=== PATIENT | male | born 1960 | race Two or more races ===

== ENCOUNTER 2024-10-06 10:13 | Emergency (ER) | payer MEDICAID, SELFPAY ==
[2024-10-06 10:45] VITALS: BP 143/78; PULSE 71; RESP 17; TEMP 36.8; O2SAT 96; BMI 25.4
--- NOTE | 2024-10-06 11:08 | XR_ITS ---
Examination: CT chest, without intravenous contrast. Sagittal and coronal 2-D reconstructions. Exam date and time: October 06, 2024 1208 hours INDICATIONS: Patient fell 3 weeks ago with injury of the chest, chest pain CTDI:vol (mGy) 12.2 DLP: (mGycm) 464 Technique: Multiple 3.0 mm axial sections of the chest to been obtained. Bone and lung density settings are obtained. Sagittal and coronal 2-D reconstructions have been obtained. Low dose protocols were performed. One or more of the following dose reduction techniques were used; automated exposure control, adjustment of the mA and/or KV according to patient size, use of iterative reconstruction technique. Findings: Thoracic aorta pulmonary arteries appear intact No hemopericardium Moderate calcification left anterior descending coronary artery Atelectasis in the lower lung zones No pneumothorax No hemothorax The manubrium, the body the sternum intact No acute thoracic vertebral body compression fractures Old appearing fracture deformity right clavicle but clinical correlation advised Multiple old right rib fractures No acute rib fractures No visualized liver splenic or renal laceration Abdominal aorta appears intact IMPRESSION: Thoracic aorta pulmonary arteries appear intact No hemopericardium, pneumothorax, pulmonary contusion or hemothorax
--- NOTE | 2024-10-06 12:43 | EDNOTE_ITS ---
<Statement entered by Viviana Guaman MD - 10/12/24 02:10> As co-signing physician, I was present and available for consult prn. I concur with the plan and care as documented by the midlevel provider. ED Fall Injury RME/HPI General Chief Complaint: Fall Stated Complaint: LOWER BACK PAIN S/P FALL 3 WEEKS AGO Time Seen by Provider: 10/06/24 11:08 Arrival date/time: 10/06/24 10:13 64-year-old male presents to the Emergency Department today for complaints of upper back pain as well as left sided rib pain ongoing for the last 3 weeks after falling patient reports pain is worse with movement patient reports no chest pain or shortness of breath Limitations: no limitations Related Data Home Medications ?Medication ?Instructions ?Recorded ?Confirmed lisinopril 20 mg tablet 20 mg PO QDAY 12/17/1705/27 allopurinol 300 mg tablet 300 mg PO QDAY 05/27/2005/11 atorvastatin 10 mg tablet 10 mg PO QDAY 05/27/2005/27 doxazosin 8 mg tablet 8 mg PO QDAY 05/27/20 loratadine 10 mg tablet 10 mg PO QDAY 05/27/2005/27 pantoprazole 20 mg tablet,delayed 20 mg PO QDAY 05/27/20 release tiotropium bromide 18 mcg capsule 1 cap inhalation QDA Y 05/27/20 05/27/20 with inhalation device (Spiriva with HandiHaler) Previous Rx's ?Medication ?Instructions ?Recorded docusate sodium 100 mg capsule 100 mg PO BID #60 caps 05/28/20 hydrocodone 5 mg-acetaminophen 300 1 tab PO Q6H PRN pa in (scale score 05/28/20 mg tablet 7-10) #20 tabs baclofen 10 mg tablet 10 mg PO TID #20 tabs diclofenac sodium 1 % topical gel 2 g topical QID #100 grams 08/19/22 chlordiazepoxide HCl 25 mg capsule 25 mg PO Q8H PRN al cohol 12/15/22 withdrawal #20 caps cyclobenzaprine 5 mg tablet 5 mg PO TID PRN muscle spa sm #30 10/06/24 tabs ibuprofen 600 mg tablet 600 mg PO Q6H #30 tabs 10/06 Allergies Allergy/AdvReac Type Severity Reaction Status Date / Time No Known Allergies Allergy Verified 07/03/23 19:20 Review of Systems Review of Systems Systems Reviewed: All systems reviewed, normal except as documented Constitutional Constitutional: Reports system reviewed and no additional complaints, except as documented, Denies fever(s) and Denies headache(s) Eyes Eyes: Reports system reviewed and no additional complaints, except as documented and Denies blurry vision ENT Ears, Nose, Mouth, and Throat: Reports system reviewed and no additional complaints, except as documented, Denies headache(s), Denies nasal congestion and Denies nasal discharge Cardiovascular Cardiovascular: Reports system reviewed and no additional complaints, except as documented, Denies chest pain and Denies dyspnea Respiratory Respiratory: Reports system reviewed and no additional complaints, except as documented, Denies chest congestion, Denies cough and Denies dyspnea Gastrointestinal Gastrointestinal: Reports system reviewed and no additional complaints, except as documented and Denies abdominal pain Musculoskeletal Musculoskeletal: Reports system reviewed and no additional complaints, except as documented, Denies back pain and Reports other (Left-sided rib pain) Integumentary/Breasts Skin/Breast: Reports system reviewed and no additional complaints, except as documented and Denies rash Neurologic Neurologic: Reports system reviewed and no additional complaints, except as documented, Reports as per HPI and Denies headache(s) Past Medical History Past Medical History NEUROLOGIC: Negative Neurological Disorders or Seizures CARDIAC: Positive Cardiac Disorders and Hypertension; Negative Congestive Heart Failure RESPIRATORY: Positive Asthma and Pneumonia (2019); Negative Chronic Obstructive Pulmonary Disease (COPD) GASTROINTESTINAL: Negative Gastrointestinal Disorders GENITOURINARY: Negative Genitourinary Disorders or Renal Disease MUSCULOSKELETAL: Positive Musculoskeletal Disorders, Gout and Fractures ENDOCRINE: Positive Endocrine Disorders (FATTY LIVER); Negative Diabetes Mellitus Type 1 or Diabetes Mellitus Type 2 HEMATOLOGIC: Negative Blood Disorders or Sickle Cell Disease OTHER HISTORY: Positive Falls (2018); Negative Blood Transfusions or Anesthesia Reactions Surgical History SURGICAL: Positive Abdominal Surgery Social History SMOKING STATUS: Never smoker SUBSTANCE USE: does not use ED Exam General Limitations: Present no limitations General appearance: Present alert and in no apparent distress Head Head exam: Present atraumatic, normocephalic and normal inspection Eye Eye exam: Present normal appearance, PERRL and EOMI ENT ENT exam: Present normal exam, normal oropharynx and mucous membranes moist Neck Neck exam: Present normal inspection, full ROM and trachea midline Chest Chest inspection: Present normal inspection and symmetric chest wall rise Respiratory Respiratory exam: Present normal lung sounds bilaterally Cardiovascular Cardiovascular exam: Present regular rate, normal rhythm and normal heart sounds Abdominal Exam Abdominal exam: Present soft and normal bowel sounds; Absent distention or tenderness Extremities Exam Extremities exam: Present normal inspection and full ROM Back Exam Back exam: Present normal inspection and full ROM Back 1 view image: 2 1. Pain Neurological Exam Neurological exam: Present alert, oriented X3 and CN II-XII intact Psychiatric Psychiatric exam: Present normal affect and normal mood Skin Skin exam: Present warm, dry, intact and normal color Course Quality Measures none Orders Category Date Time Status CT chest wo con Stat Exams 10/06/24 11:08 Completed Vital Signs Vital signs: Vital Signs Temperature 98.2 F 10/06/24 10:45 Pulse Rate 71 10/06/24 10:45 Respiratory Rate 17 10/06/24 10:45 Blood Pressure 143/78 H 10/06/24 10:45 Pulse Oximetry (%) 96 10/06/24 10:45 Oxygen Delivery Method Room Air 10/06/24 10:45 O2 saturation 96% on room air with normal limits Fall MDM Narrative MDM Narrative:: 64-year-old male presents to the Emergency Department today for complaints of upper back pain as well as left sided rib pain ongoing for the last 3 weeks after falling patient reports pain is worse with movement patient reports no chest pain or shortness of breath On exam patient's pain over his left ribs and mid back no spinal tenderness no head or neck injury Imaging obtained no acute emergent findings noted Patient discharged home in no distress to follow-up with primary care doctor in the next 24 to 48 hours and for any worsening symptoms to return to the ER immediately Patient data External records reviewed:: [facility] previous records Clinical information provided by:: patient Social determinants that could affect healthcare access:: none Patient has the following chronic illnesses:: See history How is presenting disease/condition affected by chronic disease/condition?: c aused by Evaluation data The following diagnostics were reviewed and interpreted by me:: radiology exam(s) Lab and/or radiology exams considered but not ordered:: Radiology obtained Interpretation Summary: Reviewed by me Medications / Prescriptions Medications or Prescriptions considered but not ordered:: Given Medication administrations:: Given Consultations Consultation(s) initiated? (list below): No Diagnosis Fall Differential Diagnosis: other Most likely diagnosis given after review of the tests above:: Rib contusion Admission Indicated Admission indicated?: not indicated Admission Request Was there a request for admission?: No Disposition Plan Disposition Plan: Discharge Discharge Attestation Discharge Attestation: The patient and all family members were given an opportunity to ask questions and understood the discharge instructions. Discharge instructions specifically effects, indications for sooner follow up or return to the emergency department, and the expected course of current diagnosis. Patient condition: Stable Discharge Plan Plan Patient Disposition: HOME (Self Care) Disposition Comment: Stable Prescriptions/Referrals Prescriptions/Med Rec: New ibuprofen 600 mg tablet 600 mg PO Q6H Qty: 30 0RF cyclobenzaprine 5 mg tablet 5 mg PO TID PRN (Reason: muscle spasm) Qty: 30 0RF No Action lisinopril 20 mg Tablet 20 mg PO QDAY atorvastatin 10 mg Tablet 10 mg PO QDAY pantoprazole 20 mg Tablet,Delayed Release (Dr/Ec) 20 mg PO QDAY doxazosin 8 mg Tablet 8 mg PO QDAY allopurinol 300 mg Tablet 300 mg PO QDAY loratadine 10 mg Tablet 10 mg PO QDAY tiotropium bromide [Spiriva with HandiHaler] 18 mcg Capsule, W/Inhalation Device 1 cap INHALATION QDAY hydrocodone-acetaminophen 5-300 mg tablet 1 tab PO Q6H MDD 4 PRN (Reason: pain (scale score 7-10)) Qty: 20 0RF docusate sodium 100 mg capsule 100 mg PO BID Qty: 60 0RF chlordiazepoxide HCl 25 mg capsule 25 mg PO Q8H PRN (Reason: alcohol withdrawal) Qty: 20 0RF baclofen 10 mg tablet 10 mg PO TID Qty: 20 0RF diclofenac sodium 1 % gel 2 g topical QID Qty: 100 0RF Rx Instructions: apply to single elbow, wrist or hand; for hand includes palm/fingers/back of hand Referrals: Rob Ochoa MD [Primary Care Provider] - In 1 week Problem List Clinical Impression: Rib pain on left side Patient/Caregiver Discharge Instructions Education Materials: ED Chest Pain, Noncardiac Additional Instructions: Please follow up with your primary care doctor in the next 24-48hrs for any worsening symptoms return here immediately Print Language: Pashto Stand Alone Forms: Ni Award Info., Patient Portal Info Letter PA/MAIL CARRIERS SUPERVISOR Supervising Physician PA/MAIL CARRIERS SUPERVISOR Supervising Physician: Dr. GUAMAN
== END 2024-10-06 14:49 | disposition home or self-care (01) ==
PROVIDERS: Emergency Provider Emergency Medicine; PCP Student in an Organized Health Care Education/Training Program
DX: S29.9XXA Unspecified injury of thorax, initial encounter (principal); W19.XXXA Unspecified fall, initial encounter
CPT/HCPCS: 71250; 99284

== ENCOUNTER → 2025-03-09 | Outpatient (CLI) | payer MEDICAID, SELFPAY ==
--- NOTE | 2025-03-09 16:59 | XR_ITS ---
EXAMINATION: Cervical spine, 5 views Technique: Cervical spine AP, AP odontoid, lateral, bilateral obliques, 5 views Exam date and time: March 09, 2025, 1701 hrs., Comparison February 03, 2019 Indications: Neck pain months Findings: Satisfactory alignment cervical vertebral bodies Mild disc narrowing C4-C5, C5-C6, C6-C7 with mild bilateral neural foraminal stenosis at these levels No cervical fracture Intact odontoid Impression: Mild degenerative disc disease C4-C5, C5-C6, C6-C7
== END | disposition home or self-care (01) ==
PROVIDERS: PCP Registered Nurse Community Health; Referring Provider Registered Nurse Community Health; Visit Provider Registered Nurse Community Health
DX: M50.321 Other cervical disc degeneration at C4-C5 level (principal)
CPT/HCPCS: 72050

== ENCOUNTER → 2025-04-01 | Outpatient (CLI) | payer MEDICAID, SELFPAY ==
--- NOTE | 2025-04-01 09:30 | XR_ITS ---
Examination: MRI cervical spine without intravenous contrast Date and time of exam: April 01 2025, 1251 hours INDICATIONS: Neck pain neck stiffness decreased range of motion numbness and paresthesias in the right arm 2 years Technique: Multiple axial and sagittal sections of the cervical spine to been obtained. T2 weighted sagittal sections, TR 3, 270, TE 117 T1-weighted sagittal sections, TR 500, TE 11 T1-weighted axial sections, TR 607, TE 12, axial sections TR 18, TE 27 and T2 weighted transverse sections, TR 3920, TE 122. Findings: Mildly exaggerated cervical lordosis No cervical fracture Intact odontoid Diffuse cervical disc desiccation Mild to moderate diffuse cervical disc narrowing most prominent C5-C6 No localized enlargement cervical cord C2-C3 no disc protrusion C3-C4 2 mm central subarticular osteophyte disc complex, moderate bilateral neural foraminal stenosis C4-C5 4 mm central subarticular osteophyte disc complex indenting the ventral margin cervical cord producing severe overall spinal stenosis including advanced bilateral neural foraminal stenosis C5-C6 3 mm central subarticular osteophyte disc complex, advanced left neuroforaminal stenosis Moderate bilateral neural foraminal stenosis C7-T1 no disc protrusion IMPRESSION: Diffuse significant cervical degenerative disc disease Severe overall spinal stenosis C4-C5 Additional significant neural foraminal stenosis as above
== END | disposition home or self-care (01) ==
PROVIDERS: PCP Registered Nurse Community Health; Referring Provider Registered Nurse Community Health; Visit Provider Registered Nurse Community Health
DX: M50.221 Other cervical disc displacement at C4-C5 level (principal); M48.02 Spinal stenosis, cervical region
CPT/HCPCS: 72141

== ENCOUNTER 2025-05-11 17:29 | Emergency (ER) | payer MEDICAID, SELFPAY ==
[2025-05-11 17:30] VITALS: BMI 28.8
[2025-05-11 18:41] VITALS: BP 168/88; PULSE 71; RESP 18; TEMP 37; O2SAT 95
--- NOTE | 2025-05-11 19:23 | XR_ITS ---
Examination: Abdomen sonogram, Limited Date and time of exam: May 11, 2025, 1950 hours INDICATIONS: Right upper abdominal pain beginning 2 weeks ago Technique: Real-time roy scale transabdominal sonographic images of the upper abdomen obtained. Findings: Normal gallbladder Normal common bile duct 0.2 cm Pancreatic duct 2.6 cm Liver 14.6 cm fatty infiltration Normal hepatopetal portal venous flow Patent IVC IMPRESSION: Normal catheter Normal common bile duct
--- NOTE | 2025-05-11 19:23 | EKG_ITS ---
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
--- NOTE | 2025-05-11 19:27 | PD.EDRME ---
Rapid Medical Screening Exam RME Arrival date/time: 05/11/25 17:29 64-year-old male with a history of alcohol abuse reports with complaints of right upper quadrant abdominal pain and the beginning of withdrawal symptoms Chief Complaint: Abdominal Pain Time Seen by Provider: 05/11/25 18:32 Vital signs: Vital Signs Temperature 98.6 F 05/11/25 18:41 Pulse Rate 71 05/11/25 18:41 Respiratory Rate 18 05/11/25 18:41 Blood Pressure 168/88 H 05/11/25 18:41 Pulse Oximetry (%) 95 05/11/25 18:41 Oxygen Delivery Method Room Air 05/11/25 18:41 Exam: ? Clinical Impression: ?
[2025-05-11] MEDS: LORazepam 2 MG/ML VIAL IM (19:43)
[2025-05-11] MEDS: THIAMINE INJ 100 MG/ML VIAL 2 ML IM (19:44)
[2025-05-11] MEDS: FOLIC ACID INJ 1 MG/0.2 ML IM (19:44)
[2025-05-11] MEDS: SODIUM CHLORIDE 0.9% 1000 ML 1,000 ML 999 ML IV (20:13)
[2025-05-11 20:29] LABS: Collection Type, Urine Clean Catch
[2025-05-11 20:31] LABS: Basophils # (Auto) 0.0 Thou/mm3 (0.0-0.2); Basophils % (Auto) 0 % (0-2.5); Eosinophils # (Auto) 0.0 Thou/mm3 (0.0-0.5); Eosinophils % (Auto) 1 % (0-10); Hematocrit 40.2 % (41.0-53.0); Hemoglobin 14.5 g/dL (13.5-16.0); Immature Granulocytes Auto 0.01 Thou/mm3 (0.00-0.00); Lymphocytes # (Auto) 1.1 Thou/mm3 (1.0-4.8); Lymphocytes % (Auto) 21 % (10-50); Mean Corpuscular HGB Conc 36.1 g/dl (31.0-37.0); Mean Corpuscular Hemoglobin 34.3 pg (25.0-35.0); Mean Corpuscular Volume 95 fL (80-100); Monocytes # (Auto) 0.8 Thou/mm3 (0.0-0.8); Monocytes % (Auto) 16 % (0-12); Neutrophils # (Auto) 3.2 Thou/mm3 (1.8-7.7); Neutrophils % (Auto) 62 % (37-80); Nucleated Red Blood Cell # 0.00 Thou/mm3 (0.00-0.00); Nucleated Red Blood Cell % 0 /100 WBC (0); Platelet Count 214 Thou/mm3 (140-440); RDW Standard Deviation 40.5 fL (35.1-43.9); Red Blood Count 4.23 Miln/mm3 (4.50-5.90); White Blood Count 5.2 Thou/mm3 (3.8-10.6)
[2025-05-11 20:34] LABS: Bilirubin,Urine Negative (Negative); Blood,Urine Negative (Negative); Clarity,Urine Clear (Clear/Hazy); Color,Urine Lt-Yellow (Lt Yel-Yel); Culture Indicated,Urine Not Indicated; Glucose, Urine 1+ (Negative); Ketones,Urine Negative (Negative); Leukocyte Esterase,Urine Negative (Negative); Nitrite,Urine Negative (Negative); PH,Urine 6.5 (5.0-7.0); Protein,Urine 1+ (Neg - Trace); RBC,Urine 1 /hpf (0-3); Specific Gravity,Urine 1.011 (1.001-1.035); Squamous Epithelial Cell,Urine < 1 /hpf (0-5); Urobilinogen,Urine Negative mg/dL (0.0-1.0); WBC,Urine 2 /hpf (0-5)
[2025-05-11 20:43] LABS: Amphetamine/Methamp Scrn,U Negative (Negative); Barbiturate Screen,Urine Negative (Negative); Benzodiazepines Screen,Urine Negative (Negative); Benzoylecgonine Screen, Ur Negative (Negative); Fentanyl Screen,Urine Negative (Negative); Opiate Screen,Urine Negative (Negative); THC Screen,Urine Negative (Negative)
[2025-05-11 20:59] LABS: Alanine Aminotransferase 26 U/L (10-49); Albumin, Serum 4.6 gm/dL (3.4-4.8); Albumin/Globulin Ratio 1.6 (1.2-2.2); Alcohol, Blood Medical < 3.0 mg/dL (0-10.0); Alkaline Phosphatase 69 U/L (46-116); Anion Gap 8 (7-16); Aspartate Amino Transferase 29 U/L (0-34); BUN/Creatinine Ratio 10 Ratio (12-20); Bilirubin,Total 1.2 mg/dL (0.3-1.2); Blood Urea Nitrogen 8 mg/dL (9-23); Calcium 9.4 mg/dL (8.3-10.6); Calcium (Corrected) 9.4 mg/dL (8.5-10.1); Carbon Dioxide 27.6 mMol/L (20.0-31.0); Chloride 96 mMol/L (98-107); Creatinine (Component) 0.8 mg/dL (0.6-1.3); Estimated Creatinine Clearance 94.6 mL/min (>60); Globulin 2.8 gm/dL (2.3-3.5); Glucose 106 mg/dL (74-106); Lipase 57 U/L (12-53); Magnesium 1.9 mg/dL (1.6-2.6); Osmolality,Calculated 262 (275-295); Potassium 3.6 mMol/L (3.4-5.1); Sodium 132 mMol/L (136-145); Total Protein 7.4 gm/dL (5.7-8.2); Troponin I < 0.020 ng/mL (0.0-0.045); eGFR > 60 See Note
[2025-05-11] MEDS: MULTIVITAMIN 15 ML UDC PO (21:10)
--- NOTE | 2025-05-11 22:59 | PD.EDABDPN ---
ED Abdominal Pain RME/HPI General Chief Complaint: Abdominal Pain Stated complaint: ruq pain Time seen by provider: 05/11/25 18:32 Arrival date/time: 05/11/25 17:29 Limitations: no limitations RME / HPI RME / HPI narrative: 05/11/25 17:29 64-year-old male with a history of alcohol abuse reports with complaints of right upper quadrant abdominal pain and the beginning of withdrawal symptoms ------- Dr. Mei's Main ED Evaluation: 64yo male with a history of alcohol abuse presents to the ED for a chief complaint of epigastric pain x 1 week. Patient's pain is not associated with food. Patient endorses associated nausea. Per patient's girlfriend, patient drinks heavily every day and began having tremors on arrival to the ED, but they have resolved since he was given Ativan. Patient has been drinking alcohol less, but is trying to quit. Patient denies any V/D, fever, chills, or any other associated symptoms. Related Data Home Medications ?Medication ?Instructions ?Recorded ?Confirmed lisinopril 20 mg tablet 20 mg PO QDAY 12/17/17 05/27/20 allopurinol 300 mg tablet 300 mg PO QDAY 05/27/20 05/27/20 atorvastatin 10 mg tablet 10 mg PO QDAY 05/27/20 05/27/20 doxazosin 8 mg tablet 8 mg PO QDAY 05/27/20 05/27/20 loratadine 10 mg tablet 10 mg PO QDAY 05/27/20 05/27/20 pantoprazole 20 mg tablet,delayed 20 mg PO QDAY 05/27/20 05/27/20 release tiotropium bromide 18 mcg capsule 1 cap inhalation QDAY 05/27/20 05/27/20 with inhalation device (Spiriva with HandiHaler) Previous Rx's ?Medication ?Instructions ?Recorded docusate sodium 100 mg capsule 100 mg PO BID #60 caps 05/28/20 hydrocodone 5 mg-acetaminophen 300 1 tab PO Q6H PRN pain (scale score 05/28/20 mg tablet 7-10) #20 tabs baclofen 10 mg tablet 10 mg PO TID #20 tabs 08/19/22 diclofenac sodium 1 % topical gel 2 g topical QID #100 grams 08/19/22 chlordiazepoxide HCl 25 mg capsule 25 mg PO Q8H PRN alcohol 12/15/22 withdrawal #20 caps cyclobenzaprine 5 mg tablet 5 mg PO TID PRN muscle spasm #30 10/06/24 tabs ibuprofen 600 mg tablet 600 mg PO Q6H #30 tabs 10/06/24 chlordiazepoxide HCl 25 mg capsule 25 mg PO TID #14 caps 05/11/25 chlordiazepoxide HCl 25 mg capsule 25 mg PO TID PRN alcohol 05/11/25 withdrawal #14 caps Allergies Allergy/AdvReac Type Severity Reaction Status Date / Time No Known Allergies Allergy Verified 07/03/23 19:20 Review of Systems Review of Systems Systems Reviewed: All systems reviewed, normal except as documented Past Medical History Past Medical History NEUROLOGIC: Negative Neurological Disorders or Seizures CARDIAC: Positive Cardiac Disorders and Hypertension; Negative Congestive Heart Failure RESPIRATORY: Positive Asthma and Pneumonia (2019); Negative Chronic Obstructive Pulmonary Disease (COPD) GASTROINTESTINAL: Negative Gastrointestinal Disorders GENITOURINARY: Negative Genitourinary Disorders or Renal Disease MUSCULOSKELETAL: Positive Musculoskeletal Disorders, Gout and Fractures ENDOCRINE: Positive Endocrine Disorders (FATTY LIVER); Negative Diabetes Mellitus Type 1 or Diabetes Mellitus Type 2 HEMATOLOGIC: Negative Blood Disorders or Sickle Cell Disease OTHER HISTORY: Positive Falls (2018); Negative Blood Transfusions or Anesthesia Reactions Surgical History SURGICAL: Positive Abdominal Surgery Social History SMOKING STATUS: Never smoker SUBSTANCE USE: does not use ED Exam General Limitations: Present no limitations General appearance: Present alert and in no apparent distress Head Head exam: Present atraumatic Eye Eye exam: Present normal appearance, PERRL and EOMI ENT ENT exam: Present normal exam, normal oropharynx and mucous membranes moist Neck Neck exam: Present normal inspection, full ROM and trachea midline Chest Chest inspection: Present normal inspection and symmetric chest wall rise Respiratory Respiratory exam: Present normal lung sounds bilaterally Cardiovascular Cardiovascular exam: Present regular rate, normal rhythm and normal heart sounds Abdominal Exam Abdominal exam: Present soft and normal bowel sounds Extremities Exam Extremities exam: Present normal inspection and full ROM Back Exam Back exam: Present normal inspection and full ROM Neurological Exam Neurological exam: Present alert, oriented X3 and CN II-XII intact Psychiatric Psychiatric exam: Present normal affect and normal mood Skin Skin exam: Present warm, dry, intact and normal color Course Quality Measures none Orders Category Date Time Status EKG (ED ONLY) *Do not use* NOW Care 05/11/25 19:23 Completed EKG (ED Only) Stat Exams 05/11/25 19:23 Draft US abdomen limited Stat Exams 05/11/25 19:23 Completed Alcohol, Blood Medical Stat Lab 05/11/25 20:15 Completed CBC Stat Lab 05/11/25 20:15 Completed CMP [Comprehensive Metabolic Panel] Stat Lab 05/11/25 20:15 Completed Drug Screen,Urine Stat Lab 05/11/25 20:15 Completed Lipase Stat Lab 05/11/25 20:15 Completed Mag [Magnesium] Stat Lab 05/11/25 20:15 Completed Troponin I Stat Lab 05/11/25 20:15 Completed UA, C/S IF [Urinalysis, C/S if Indicated] Stat Lab 05/11/25 20:15 Completed Folic Acid Inj Med 05/11/25 19:23 Discontinued 1 mg IM X1 ONE LORazepam [Ativan Inj] Med 05/11/25 19:26 Discontinued 2 mg IM X1 ONE Multivitamin. Med 05/11/25 19:23 Discontinued 15 ml PO X1 ONE Multivitamin. Med 05/11/25 19:49 Discontinued 15 ml PO X1 ONE Sodium Chloride 0.9% 1000 ml [Ns] 1,000 ml Med 05/11/25 19:23 Discontinued IV 999 mls/hr Thiamine Inj [Vitamin B-1 Inj] Med 05/11/25 19:23 Discontinued 100 mg IM X1 ONE Vital Signs Vital signs: Vital Signs Temperature 98.6 F 05/11/25 18:41 Pulse Rate 71 05/11/25 18:41 Respiratory Rate 18 05/11/25 18:41 Blood Pressure 168/88 H 05/11/25 18:41 Pulse Oximetry (%) 95 05/11/25 18:41 Oxygen Delivery Method Room Air 05/11/25 18:41 Abdominal Pain MDM MDM Narrative MDM Narrative:: Scribe Attestation: 05/11/25 Niecy Rendon am scribing for and in the presence of Dr. Mei. 63-year-old male brought in with on and off epigastric pain. EKG does not show ST elevation or depressions. Troponin is negative. The patient did have some tremors. He does admit to drinking alcohol. Right now he is not in active alcohol withdrawal. Discussed with the patient and the patient's significant other at the bedside. Will do trial of Librium. Patient will follow-up with his primary care in the next 48 to 72 hours for further resources if needed. Patient data External records reviewed:: [facility] previous records (Per chart review, patient was seen here on 10/06/24 for rib pain.) Clinical information provided by:: patient Social determinants that could affect healthcare access:: none Patient has the following chronic illnesses:: HTN, asthma How is presenting disease/condition affected by chronic disease/condition?: uneffected by Evaluation data The following diagnostics were reviewed and interpreted by me:: lab results, radiology exam(s) and EKG tracing(s) Lab and/or radiology exams considered but not ordered:: none Interpretation Summary: CBC normal, Na 132, Glucose normal, Mg normal, Troponin normal, Lipase 57, UA unremarkable, UDS negative, Blood Alcohol negative. EKG done at 3, sinus rhythm, rate of 64, 1st degree AV block, QTc: 460, no ST depressions, no STEMI, according to my interpretation. [place] [facility] Report Signed Patient: SHANEL MCCURDY [facility]. Record#: [id number] Birthdate: 1960 Age/Sex: 64 / M Location: [facility] Attending Dr: Ordering Physician: Jean Burton PA-C Date of Service: 05/11/25 Procedure(s): US abdomen limited Accession Number(s): [id number] cc: Nayeli FallP; Ethan Coats MD; Jean Burton PA-C~ Examination: Abdomen sonogram, Limited Date and time of exam: May 11, 20251950 hours INDICATIONS: Right upper abdominal pain beginning 2 weeks ago Technique: Real-time roy scale transabdominal sonographic images of the upper abdomen obtained. Findings: Normal gallbladder Normal common bile duct 0.2 cm Pancreatic duct 2.6 cm Liver 14.6 cm fatty infiltration Normal hepatopetal portal venous flow Patent IVC IMPRESSION: Normal catheter Normal common bile duct Dictated By: Ethan Coats MD Signed By: <Electronically signed by Ethan Coats MD in OV> 05/11/259 Medications / Prescriptions Medications or Prescriptions considered but not ordered:: none Medication administrations:: Medication Administration History Discontinued Medications Folic Acid (Folic Acid Inj 1 Mg/0.2 Ml) 1 mg IM X1 ONE Stop: 05/11/25 19:24 Last Admin: 05/11/25 19:44 Dose: 1 mg Documented By: LILLIE Sodium Chloride (Ns) 1,000 mls @ 999 mls/hr IV .Q1H1M ONE Stop: 05/11/25 20:23 Last Infusion: 05/11/25 21:15 Dose: Infused Documented By: Admin: 05/11/25 20:13 Dose: 999 mls/hr Documented By: LILLIE Lorazepam (Lorazepam 2 Mg/Ml Vial) 2 mg IM X1 ONE Stop: 05/11/25 19:27 Last Admin: 05/11/25 19:43 Dose: 2 mg Documented By: LILLIE Multivitamins/Minerals (Multivitamin 15 Ml Udc) 15 ml PO X1 ONE Stop: 05/11/25 19:24 Last Admin: 05/11/25 21:10 Dose: Not Given Documented By: LILLIE Non-Admin Reason: Duplicate Medication on eMAR Multivitamins/Minerals (Multivitamin 15 Ml Udc) 15 ml PO X1 ONE Stop: 05/11/25 19:50 Last Admin: 05/11/25 21:10 Dose: 15 ml Documented By: LILLIE Thiamine HCl (Thiamine Inj 100 Mg/Ml Vial 2 Ml) 100 mg IM X1 ONE Stop: 05/11/25 19:24 Last Admin: 05/11/25 19:44 Dose: 100 mg Documented By: LILLIE see above Consultations Consultation(s) initiated? (list below): No Diagnosis Differential diagnosis abdominal pain: pancreatitis and other (alcohol withdrawal, gastritis, [place], gallstones) Most likely diagnosis given after review of the tests above:: see clinical impression below Admission Indicated Admission indicated?: not indicated Admission Request Was there a request for admission?: No Disposition Plan Disposition Plan: Discharge Discharge Attestation Discharge Attestation: The patient and all family members were given an opportunity to ask questions and understood the discharge instructions. Discharge instructions specifically effects, indications for sooner follow up or return to the emergency department, and the expected course of current diagnosis. Patient condition: Stable Discharge Plan Plan Patient Disposition: HOME (Self Care) Patient condition on transfer: Stable Prescriptions/Referrals Prescriptions/Med Rec: New chlordiazepoxide HCl 25 mg capsule 25 mg PO TID PRN (Reason: alcohol withdrawal) Qty: 14 0RF chlordiazepoxide HCl 25 mg capsule 25 mg PO TID Qty: 14 0RF No Action lisinopril 20 mg Tablet 20 mg PO QDAY atorvastatin 10 mg Tablet 10 mg PO QDAY pantoprazole 20 mg Tablet,Delayed Release (Dr/Ec) 20 mg PO QDAY doxazosin 8 mg Tablet 8 mg PO QDAY allopurinol 300 mg Tablet 300 mg PO QDAY loratadine 10 mg Tablet 10 mg PO QDAY tiotropium bromide [Spiriva with HandiHaler] 18 mcg Capsule, W/Inhalation Device 1 cap INHALATION QDAY hydrocodone-acetaminophen 5-300 mg tablet 1 tab PO Q6H MDD 4 PRN (Reason: pain (scale score 7-10)) Qty: 20 0RF docusate sodium 100 mg capsule 100 mg PO BID Qty: 60 0RF chlordiazepoxide HCl 25 mg capsule 25 mg PO Q8H PRN (Reason: alcohol withdrawal) Qty: 20 0RF ibuprofen 600 mg tablet 600 mg PO Q6H Qty: 30 0RF cyclobenzaprine 5 mg tablet 5 mg PO TID PRN (Reason: muscle spasm) Qty: 30 0RF baclofen 10 mg tablet 10 mg PO TID Qty: 20 0RF diclofenac sodium 1 % gel 2 g topical QID Qty: 100 0RF Rx Instructions: apply to single elbow, wrist or hand; for hand includes palm/fingers/back of hand Referrals: Nayeli Fall FNP [Primary Care Provider] - In 1 week Problem List Clinical Impression: Abdominal pain, epigastric, Alcohol abuse Patient/Caregiver Discharge Instructions Education Materials: Alcoholism: Getting Help, ED Epigastric Pain (Uncertain Cause) Additional Instructions: Please follow-up primary care in next 48 hours for recheck. You may need to also discuss other alcohol withdrawal like recommendations. Please avoid alcohol if you are taking the Librium. Return to Emergency Department for worsening symptoms, fever, you are vomiting cannot tolerate liquids. You are shaking. You feel you can hallucinate, or any other concerns. Print Language: Lithuanian Stand Alone Forms: Ni Award Info., Patient Portal Info Letter
[2025-05-11 23:35] VITALS: RESP 16
== END 2025-05-11 23:35 | disposition home or self-care (01) ==
PROVIDERS: Physician Assistant; Emergency Provider Emergency Medicine; PCP Registered Nurse Community Health
DX: F10.10 Alcohol abuse, uncomplicated (principal); R10.13 Epigastric pain; I44.0 Atrioventricular block, first degree; Y90.0 Blood alcohol level of less than 20 mg/100 ml; I10 Essential (primary) hypertension
CPT/HCPCS: 36415; 76705; 80053; 80307; 80320; 81001; 83690; 83735; 84484; 85025; 93005; 96360; 96372; 99284; J2060; J3411; J3490; J7030; A9270; G0480